=== PATIENT | female | born 1995 | race African-American/Black ===

== ENCOUNTER 2023-05-29 11:18 | Emergency (ER) | payer BC ==
[~2023-05-29] VITALS: Ht 172.7 cm; Wt 86.0 kg
[2023-05-29 11:32] VITALS: O2SAT 99
[2023-05-29] MEDS ORDERED: LACTATED RINGERS 1,000 ML IV SCH (12:30)
[2023-05-29] MEDS ORDERED: ONDANSETRON HCL 4MG/2ML INJ IV ONE (12:30)
[2023-05-29 13:00] LABS: BASOPHILS % 0.1 % (0.0-2.0); HEMATOCRIT. 40.1 % (36.0-48.0); LYMPHOCYTES % 10.9 % (20.0-50.0); MEAN CORPUSCULAR HEMOGLOBIN 28.5 pg (28.0-32.0); MEAN CORPUSCULAR HGB CONC 32.5 g/dL (31.0-37.0); MEAN CORPUSCULAR VOLUME 87.5 fL (81.0-99.0); MEAN PLATELET VOLUME 8.7 fl (7.4-10.4); MONOCYTES % 3.7 % (2.0-8.0); NEUTROPHILS % 85.3 % (40.0-76.0); PLATELET 292 x1000/uL (130-400); RED BLOOD CELL COUNT 4.58 mill/uL (4.2-5.4); RED CELL DISTRIBUTION WIDTH 13.6 % (11.6-14.6); WHITE BLOOD COUNT 8.3 x1000/uL (4.5-11.0)
[2023-05-29 13:23] LABS: CHLORIDE 106 mEq/L (98-107); INDEX HEMOLYSI 1 (1-3); INDEX ICTERIC 1 (1-4); INDEX LIPEMIC 1 (1-3); POTASSIUM 3.7 mEq/L (3.5-5.1); SODIUM 140 mEq/L (136-145)
[2023-05-29 13:31] LABS: ALANINE AMINOTRANSFERASE 23 IU/L (13-61); ASPARTATE AMINOTRANSFERASE 18 IU/L (15-37); BILIRUBIN TOTAL 0.5 mg/dL (0.1-1.0); CALCIUM 8.9 mg/dL (8.5-10.1); CARBON DIOXIDE 26 mEq/L (21-32); CREATININE 0.6 mg/dL (0.6-1.3); ETHANOL BLOOD < 10 mg/dL (<10); GLUCOSE 115 mg/dL (70-105); PROTEIN TOTAL 8.5 g/dL (6.0-8.3); UREA NITROGEN BLOOD 12 mg/dL (7-21)
[2023-05-29 13:42] LABS: HCG SCREEN NEGATIVE
[2023-05-29] MEDS ORDERED: ONDA4TAB11 PO (15:05)
[2023-05-29 15:49] VITALS: BP 132/74; PULSE 89; RESP 20; TEMP 98.2
== END 2023-05-29 15:51 | disposition home or self-care (01) ==
LOC: ER 11:18
DX: R11.2 Nausea with vomiting, unspecified (principal)
CPT/HCPCS: 80053; 80320; 84703; 83690; 85025; 36415; 96361; 96374; 99283; J2405; Z7610 ×2; G0480